=== PATIENT | female | born 1955 | race Caucasian/White ===

== ENCOUNTER → 2016-08-30 | Outpatient (CLI) | payer BC ==
[~2016-08-30] MED LIST: HYDR-5688 PO; IBAN150T PO; IBUP-1050 PO; SERT25TA PO
--- NOTE | 2016-08-30 10:11 | DIAGNOSTIC IMAGING REPORT ---
LEFT RIBS UNILATERAL W/CHEST CLINICAL HISTORY: LEFT RIB PAIN COMPARISON STUDY: Chest 01/14/2015. FINDINGS: Mild deformity within the left lateral fifth and sixth ribs consistent with old, healed fractures. No acute rib fractures. No pneumothorax. The lungs are clear. The heart is normal in size. No pleural effusions. IMPRESSION: Old, healed left lateral rib fractures. No acute rib fractures. Electronically signed by: Kamran Fernandes M.D. 08/30/2016 10:10 AM Dictated Date/Time: 08/30/2016 10:03 AM
== END | disposition home or self-care (01) ==
LOC: C.RDSM 09:43
PROVIDERS: ATTEND Physician Assistant
DX: R07.81 Pleurodynia (principal)

== ENCOUNTER → 2016-09-03 | Outpatient (CLI) | payer BC | END | disposition home or self-care (01) | LOC: C.MAMM 09:06 | PROVIDERS: ATTEND Family Medicine | DX: M81.0 Age-related osteoporosis without current pathological fracture (principal); M85.852 Other specified disorders of bone density and structure, left thigh; M85.851 Other specified disorders of bone density and structure, right thigh ==

== ENCOUNTER → 2017-03-16 | Outpatient (CLI) | payer BC ==
--- NOTE | 2017-03-16 15:53 | DIAGNOSTIC IMAGING REPORT ---
BILATERAL KNEES 5 VIEWS CLINICAL HISTORY: The pain. Degenerative arthritis. COMPARISON: None. DISCUSSION: No acute fractures are visualized. There are bilateral osteoarthritic changes more severe on the left. There is dorsal patellar spurring, more severe in the left. There are no subluxations. There are joint effusions are visualized. IMPRESSION: 1. No acute fractures 2. Bilateral osteoarthritic changes more severe in the left Electronically signed by: Riaz Mcmahan M.D. 03/16/2017 3:51 PM Dictated Date/Time: 03/16/2017 3:50 PM
== END | disposition home or self-care (01) ==
LOC: C.RDSM 08:24
PROVIDERS: ATTEND Physician Assistant
DX: M17.0 Bilateral primary osteoarthritis of knee (principal)